=== PATIENT | female | born 1965 | race Caucasian/White ===

== ENCOUNTER 2018-11-17 05:20 | Day surgery (SDC) | payer OTHER ==
[2018-11-17] MEDS ORDERED: LACTATED RINGERS 1,000 ML ONE (05:48)
[2018-11-17] MEDS ORDERED: PROPOFOL 200 MG/20 ML VIAL IV ONE (10:00)
--- NOTE | 2018-11-17 10:27 | OP ---
DATE OF PROCEDURE: 11/17/18 PREPROCEDURE DIAGNOSIS: 1. Average-risk colorectal cancer screening. This is the patient's first colonoscopy. POSTPROCEDURE DIAGNOSIS: 1. Colonic polyp. 2. Internal hemorrhoids. PROCEDURE: 1. Colonoscopy with snare polypectomy. SURGEON: Naeem Almanza MD. SEDATION: Monitored anesthesia care. ESTIMATED BLOOD LOSS: Less than 5 mL. PROCEDURE: Informed consent was obtained prior to sedation. The preprocedure cardiopulmonary assessment was satisfactory. The patient was brought to the Endoscopy Suite and placed in the left lateral decubitus position. The patient was then sedated by the anesthesia team. Digital rectal and perianal exams were normal. The tip of the Olympus colonoscope was inserted into the rectum and advanced under direct visualization to the cecum as identified by the presence of the appendiceal orifice and ileocecal valve. Preparation of the colon was good. The endoscope was then slowly withdrawn. In the hepatic flexure, there was an 8 mm sessile polyp. This was resected with cold snare polypectomy and retrieved for pathology. Retroflexed view of the rectum showed medium sized, non-bleeding internal hemorrhoids. The endoscope was then withdrawn from the patient and the procedure terminated. RECOMMENDATION: 1. Discharge the patient home with escort. 2. Resume regular diet. 3. Continue present medications. 4. Followup pathology. 5. Followup with a surveillance colonoscopy in 5 years' time. #[id number] MTDD
[2018-11-17 10:35] VITALS: BP 132/70; TEMP 97.4; O2SAT 95
== END 2018-11-17 11:30 | disposition home or self-care (01) ==
LOC: AMB 05:20
PROVIDERS: ATTEND Internal Medicine Gastroenterology
DX: Z12.11 Encounter for screening for malignant neoplasm of colon (principal); I10 Essential (primary) hypertension; E66.9 Obesity, unspecified; Z68.33 Body mass index [BMI] 33.0-33.9, adult; Z79.1 Long term (current) use of non-steroidal anti-inflammatories (NSAID); Z79.890 Hormone replacement therapy; Z79.899 Other long term (current) drug therapy; Z88.5 Allergy status to narcotic agent
CPT/HCPCS: 00811; 45385; J3490; J7120

== ENCOUNTER → 2020-02-28 | Outpatient (CLI) | payer OTHER | LOC: GMAL 10:29 | PROVIDERS: ATTEND Family Medicine | DX: D51.9 Vitamin B12 deficiency anemia, unspecified (principal); E03.9 Hypothyroidism, unspecified; I10 Essential (primary) hypertension; Z79.899 Other long term (current) drug therapy; E55.9 Vitamin D deficiency, unspecified ==